=== PATIENT | female | born 1940 | race Caucasian/White ===

== ENCOUNTER 2021-11-29 11:11 | Inpatient (IN) | payer MEDICARE, OTHER ==
[~2021-11-29] VITALS: Ht 170.2 cm; Wt 71.7 kg
--- NOTE | 2021-11-29 11:11 | NUR ---
PT BIB STAFF FRM RETIREMENT FOR WEAKNESS X 1 WEEK, AND NOTICE BLOOD IN STOOL X 2 DAYS. PT IS AAOX2, NOT IN RESPIRATORY DISTRESS, HOOKED TO DYNAMOMETER MECHANIC, KEPT RESTED AND COMFORTABLE. WILL CONTINUE TO MONITOR.
[2021-11-29] MEDS ORDERED: IV NS 0.9% 500 ML BAG IV ONE (11:30)
--- NOTE | 2021-11-29 11:39 | NUR ---
MOVE SHEET SUBMITTED AND CALLED FOR MS BED.
--- NOTE | 2021-11-29 11:45 | NUR ---
IV LINE ESTABLISHED BLOOD DRAWN AND SENT TO LAB.
[2021-11-29 12:02] LABS: BASOPHILS # (AUTO) 0.1 K/uL (0.0-0.2); BASOPHILS % (AUTO) 0.9 % (0.0-2.0); EOSINOPHILS % (AUTO) 1.9 % (0.0-6.0); HEMATOCRIT 33 % (33-45); HEMOGLOBIN 10.6 g/dL (11.5-14.8); LYMPHOCYTES # (AUTO) 1.1 K/uL (0.8-4.8); MEAN CORPUSCULAR HGB CONC 33 g/dl (31.0-36.0); MEAN CORPUSCULAR VOLUME 82 fL (82-100); MONOCYTES # (AUTO) 0.6 K/uL (0.1-1.30); MONOCYTES % (AUTO) 6.8 % (2.0-12.0); NEUTROPHILS # (AUTO) 7.3 K/uL (1.8-8.9); NEUTROPHILS % (AUTO) 78.4 % (43.0-81.0); PLATELET COUNT (AUTO) 351 K/uL (150-450); RED BLOOD CELL COUNT(AUTO) 3.96 MIL/uL (4.0-5.2); WHITE BLOOD COUNT (AUTO) 9.3 K/uL (4.3-11.0)
--- NOTE | 2021-11-29 12:20 | NUR ---
PT REFUSED STRAIGHT CATH INSERTION AND STATED SHE WILL TRY TO PROVIDE URINE SPECIMEN LATER.
[2021-11-29 12:21] LABS: ALANINE AMINOTRANSFERASE 17 U/L (12-78); ALBUMIN 2.6 g/dL (3.4-5.0); ALKALINE PHOSPHATASE 78 U/L (46-116); ASPARTATE AMINOTRANSFERASE 12 U/L (15-37); BILIRUBIN,DIRECT 0.1 mg/dL (0.0-0.2); BILIRUBIN,TOTAL 0.3 mg/dL (0.2-1.0); CARBON DIOXIDE 20 mmol/L (21-32); CHLORIDE 106 mmol/L (98-107); CREATININE 3.1 mg/dL (0.6-1.3); GLUCOSE 159 mg/dL (74-106); LIPASE 105 U/L (73-393); POTASSIUM 4.4 mmol/L (3.5-5.1); SODIUM SERUM 138 mmol/L (136-145); TOTAL PROTEIN, SERUM 6.5 g/dL (6.4-8.2); UREA NITROGEN, BLOOD 54 mg/dL (7-18)
--- NOTE | 2021-11-29 13:01 | NUR ---
URINE SPECIMEN COLLECTED AND SENT TO LAB.
--- NOTE | 2021-11-29 13:03 | NUR ---
[facility] CALLED LOBSTER MAN PAGED.
[2021-11-29 14:38] LABS: BILIRUBIN,URINE NEGATIVE (NEGATIVE); LEUKOCYTE ESTERASE ,URINE NEGATIVE (NEGATIVE); NITRITE, URINE NEGATIVE (NEGATIVE); PROTEIN,URINE NEGATIVE (NEGATIVE); UGLUCOSE NEGATIVE (NEGATIVE); UROBILINOGEN,URINE 0.2 EU/dL (0.2)
[2021-11-29 14:39] LABS: COLOR,URINE STRAW (YELLOW)
--- NOTE | 2021-11-29 14:40 | NUR ---
AT BEDSIDE FOR EVAL.
[2021-11-29] MEDS ORDERED: MAG HYDROX/AL HYDROX/SIMETH 30 ML UDC PO PRN (15:00)
[2021-11-29] MEDS ORDERED: ONDANSETRON HCL/PF 4 MG/2 ML VIAL IVP PRN (15:00)
[2021-11-29] MEDS ORDERED: Z GUARD REMEDY 4 OZ OINT TP PRN (15:00)
[2021-11-29] MEDS ORDERED: MAGNESIUM HYDROXIDE 30 ML UDC PO PRN (15:00)
[2021-11-29] MEDS ORDERED: LABETALOL 20 MG/4 ML VIAL IV PRN (15:00)
[2021-11-29] MEDS ORDERED: MORPHINE SULFATE INJ 2 MG/ML DISP.SYRIN IV PRN (15:00)
[2021-11-29] MEDS: IV NS 0.9% 1,000 ML IV SCH ×2 (15:06→17:32)
--- NOTE | 2021-11-29 15:44 | NUR ---
GOT BED 328-1
[2021-11-29 16:13] LABS: BACTERIA,URINE 1+ /HPF (None Seen); RBC,URINE 0-2 /HPF (0-2); SQUAMOUS EPITHELIAL CELL,UR Few /HPF (None Seen); WBC,URINE 0-2 /HPF (0-3)
--- NOTE | 2021-11-29 16:43 | NUR ---
REPORT GIVEN TO ALEXA KATHLEEN FOR SANAZ. WITH ONGOING IV FLUID
--- NOTE | 2021-11-29 17:10 | NUR ---
Patient arrived via gurney at 17:10pm, from ER. Patient AO X 2-3, able to make needs known, can follow simple commands, no apparent distress noted, breathing even and unlabored. Admitting hospitalist made aware of the patient's arrival. Patient admitting diagnosis rectal bleed, CKD. Patient's vital signs within normal limits, no complained of facial numbness or weakness, no extremity numbness or weakness at this time. Skin intact, warm to touch, no pallor or cyanosis noted. Abdominal bowel sound present in all quadrants, no grimacing when abdomen palpated, no bleeding noted at this time. Patient oriented with use of call lights, use of bed control, use of telephone and tv control, also introduces SALES TECHNICIAN HOME THEATER and RN assigned for today, verbalized understanding and gratitude. All belongings written in the inventory list. All needs attended, kept clean and dry, call light left within reach, safety precautions in place, brakes locked, side rails up X 2, will monitor closely for any changes.
[2021-11-29 17:15] VITALS: BP 160/79
[2021-11-29 18:00] VITALS: BP 156/81
[2021-11-29] MEDS ORDERED: LABETALOL HCL IV 100MG VIAL IV PRN (18:00)
--- NOTE | 2021-11-29 18:55 | NUR ---
RN CLOSING NOTES Patient lying in bed, no SOB, respirations even and unlabored, no apparent distress noted, no dizziness, no palpitations, no chest pain, no nausea, no vomiting. All due medications given per MD order, tolerating well. Patient has an order for IV fluids (0.9NS at 75ml/hr) IV site on her left wrist, intact and IV fluids infusing well, no swelling, no redness, no c/o pain or discomfort at site. All needs attended, kept clean and dry, call light left within reach, safety precautions in place, frequent visual check rendered, brakes locked, side rails up X 2, will endorse to next shift for continuity of care.
[2021-11-29 20:00] VITALS: BP 157/81
--- NOTE | 2021-11-29 20:00 | NUR ---
MS RN OPENING NOTE PATIENT AWAKE IN BED, ALERT/ORIENTED X 2, PT ABLE TO MAKE NEEDS KNOWN. PT STABLE ON RA, NO S/S OF DISTRESS OR SOB NOTED, BREATHING EVEN AND UNLABORED. IV ACCESS ON LEFT WRIST #20G INTACT AND RUNNING NS @ 75 ML/HR. PROVIDED PATIENT WITH JUICE AND SNACK, ASSISTED PATIENT TO BATHROOM. SAFETY MEASURES IN PLACE: CALL LIGHT WITHIN REACH, SIDE RAILS UP X 3, BED LOCKED IN LOW POSITION, HOB ELEVATED, TABLE WITHIN REACH. WILL CONTINUE TO MONITOR PATIENT
[2021-11-29 20:23] LABS: HEMOGLOBIN 10.2 g/dL (11.5-14.8)
[2021-11-30] MEDS: ACETAMINOPHEN 325 MG TABLET PO PRN (06:36)
--- NOTE | 2021-11-30 06:36 | NUR ---
MS RN NOTE PATIENT REPORTING HEADACHE, TYLENOL 650 MG PO GIVEN ORDERED
--- NOTE | 2021-11-30 07:10 | NUR ---
MS RN CLOSING NOTES PATIENT AWAKE IN BED, NO SIGNIFICANT CHANGES THROUGHOUT SHIFT, PT SLEPT WELL THROUGH THE NIGHT . PT STABLE ON RA, NO S/S OF DISTRESS OR SOB NOTED, BREATHING EVEN AND UNLABORED. LEFT HAND IV RUNNING NS @ 75 ML/HR. NO BLOODY STOOL REPORTED DURING SHIFT. MEDICATIONS GIVEN ORDERED, PT NEEDS MET THROUGHOUT SHIFT. SAFETY MEASURES IN PLACE: CALL LIGHT WITHIN REACH, SIDE RAILS UP X 3, BED LOCKED IN LOW POSITION, HOB ELEVATED, TABLE WITHIN REACH, BED ALARM ON. WILL ENDORSE TO DAY SHIFT NURSE FOR CONTINUITY OF CARE
--- NOTE | 2021-11-30 07:27 | NUR ---
MS RN OPENING NOTE RECEIVED PATIENT AWAKE IN BED, ALERT/ORIENTED X 2, PT ABLE TO MAKE NEEDS KNOWN. PT STABLE ON RA, NO S/S OF DISTRESS OR SOB NOTED, BREATHING EVEN AND UNLABORED. IV ACCESS ON LEFT WRIST #20G INTACT AND RUNNING NS @ 75 ML/HR, NO S/SX OF INFILTRATION NOTED. SAFETY MEASURES IN PLACE: CALL LIGHT WITHIN REACH, SIDE RAILS UP X 3, BED LOCKED IN LOW POSITION, HOB ELEVATED, TABLE WITHIN REACH. WILL CONTINUE TO MONITOR PATIENT ACCORDINGLY.
[2021-11-30 07:46] LABS: BASOPHILS % (AUTO) 0.3 % (0.0-2.0); EOSINOPHILS % (AUTO) 3.6 % (0.0-6.0); HEMATOCRIT 31 % (33-45); HEMOGLOBIN 10.2 g/dL (11.5-14.8); LYMPHOCYTES # (AUTO) 1.6 K/uL (0.8-4.8); LYMPHOCYTES % (AUTO) 19.2 % (20.0-44.0); MEAN CORPUSCULAR HGB CONC 33 g/dl (31.0-36.0); MEAN CORPUSCULAR VOLUME 83 fL (82-100); MONOCYTES # (AUTO) 0.7 K/uL (0.1-1.30); MONOCYTES % (AUTO) 7.9 % (2.0-12.0); NEUTROPHILS # (AUTO) 5.7 K/uL (1.8-8.9); PLATELET COUNT (AUTO) 353 K/uL (150-450); RED BLOOD CELL COUNT(AUTO) 3.75 MIL/uL (4.0-5.2); WHITE BLOOD COUNT (AUTO) 8.3 K/uL (4.3-11.0)
[2021-11-30 08:00] VITALS: BP 136/67
[2021-11-30 08:10] LABS: ALANINE AMINOTRANSFERASE 17 U/L (12-78); ALBUMIN 2.3 g/dL (3.4-5.0); ALKALINE PHOSPHATASE 75 U/L (46-116); ASPARTATE AMINOTRANSFERASE 12 U/L (15-37); BILIRUBIN,TOTAL 0.3 mg/dL (0.2-1.0); CALCIUM, SERUM 9.2 mg/dL (8.5-10.1); CARBON DIOXIDE 19 mmol/L (21-32); CHLORIDE 118 mmol/L (98-107); GLUCOSE 90 mg/dL (74-106); MAGNESIUM 2.3 mg/dL (1.8-2.4); PHOSPHORUS 4.3 mg/dL (2.5-4.9); SODIUM SERUM 148 mmol/L (136-145); TOTAL PROTEIN, SERUM 5.9 g/dL (6.4-8.2); UREA NITROGEN, BLOOD 51 mg/dL (7-18)
[2021-11-30] MEDS: IV 1/2NS 1000 ML 1,000 ML IV SCH ×2 (08:50→22:08)
[2021-11-30] MEDS: PANTOPRAZOLE 40 MG VIAL IV SCH ×2 (11:36→16:16)
[2021-11-30 16:00] VITALS: BP 131/67
--- NOTE | 2021-11-30 16:42 | NUR ---
RN NOTES URINE SPECIMEN COLLECTED, LAB INFORMED SPOKE TO [place] FOR POSTDOCTORAL SCIENTIST.
--- NOTE | 2021-11-30 18:31 | NUR ---
MS RN OPENING NOTE RECEIVED PATIENT AWAKE IN BED, ALERT/ORIENTED X 2, PT ABLE TO MAKE NEEDS KNOWN. PT STABLE ON RA, NO S/S OF DISTRESS OR SOB NOTED, BREATHING EVEN AND UNLABORED. IV ACCESS ON LEFT WRIST #22G INTACT AND RUNNING 1/2 NS @ 80 ML/HR, NO S/SX OF INFILTRATION NOTED. SAFETY MEASURES IN PLACE: CALL LIGHT WITHIN REACH, SIDE RAILS UP X 3, BED LOCKED IN LOW POSITION, HOB ELEVATED, TABLE WITHIN REACH. ALL NEEDS ATTENDED AND MET. DUE MEDS GIVEN ORDERED. WILL ENDORSE TO ONCOMING SHIFT FOR SANAZ.
--- NOTE | 2021-11-30 19:34 | NUR ---
MS RN OPENING NOTE PATIENT RESTING IN BED, ALERT/ORIENTED X 2, PT ABLE TO MAKE NEEDS KNOWN. PT STABLE ON RA, NO S/S OF DISTRESS OR SOB NOTED, BREATHING EVEN AND UNLABORED. IV ACCESS ON LEFT WRIST #22G INTACT AND RUNNING 1/2NS @ 80 ML/HR. SAFETY MEASURES IN PLACE: CALL LIGHT WITHIN REACH, SIDE RAILS UP X 3, BED LOCKED IN LOW POSITION, HOB ELEVATED, TABLE WITHIN REACH, BED ALARM ON. WILL CONTINUE TO MONITOR PATIENT
[2021-11-30 20:00] VITALS: BP 141/73
[2021-11-30 20:23] LABS: BILIRUBIN,URINE NEGATIVE (NEGATIVE); COLOR,URINE YELLOW (YELLOW); LEUKOCYTE ESTERASE ,URINE NEGATIVE (NEGATIVE); NITRITE, URINE NEGATIVE (NEGATIVE); PH,URINE 6.5 (5.0-8.0); PROTEIN,URINE NEGATIVE (NEGATIVE); UGLUCOSE NEGATIVE (NEGATIVE); UROBILINOGEN,URINE 0.2 EU/dL (0.2)
[2021-11-30 22:03] LABS: CREATININE, URINE < 13.0 MG/DL (30.0-125.0); URINE SODIUM, RANDOM 40 mmol/l (40-220); URINE TOTAL PROTEIN 25.6 mg/dL (0-11.9)
--- NOTE | 2021-12-01 06:53 | NUR ---
MS RN CLOSING NOTES PATIENT AWAKE IN BED, NO SIGNIFICANT CHANGES THROUGHOUT SHIFT, PT SLEPT WELL THROUGH THE NIGHT . PT STABLE ON RA, NO S/S OF DISTRESS OR SOB NOTED, BREATHING EVEN AND UNLABORED. RIGHT HAND IV RUNNING 1/2 NS @ 80 ML/HR. NO BLOODY STOOL DURING SHIFT. MEDICATIONS GIVEN ORDERED, PT NEEDS MET THROUGHOUT SHIFT. SAFETY MEASURES IN PLACE: CALL LIGHT WITHIN REACH, SIDE RAILS UP X 3, BED LOCKED IN LOW POSITION, HOB ELEVATED, TABLE WITHIN REACH, BED ALARM ON. WILL ENDORSE TO DAY SHIFT NURSE FOR CONTINUITY OF CARE
[2021-12-01 07:10] LABS: CALCIUM, SERUM 8.5 mg/dL (8.5-10.1); CARBON DIOXIDE 22 mmol/L (21-32); CHLORIDE 116 mmol/L (98-107); GLUCOSE 89 mg/dL (74-106); MAGNESIUM 2.3 mg/dL (1.8-2.4); PHOSPHORUS 3.8 mg/dL (2.5-4.9); POTASSIUM 4.9 mmol/L (3.5-5.1); SODIUM SERUM 146 mmol/L (136-145); UREA NITROGEN, BLOOD 48 mg/dL (7-18)
[2021-12-01 07:14] LABS: BASOPHILS % (AUTO) 0.5 % (0.0-2.0); EOSINOPHILS % (AUTO) 4.3 % (0.0-6.0); HEMATOCRIT 32 % (33-45); HEMOGLOBIN 10.1 g/dL (11.5-14.8); LYMPHOCYTES # (AUTO) 1.6 K/uL (0.8-4.8); LYMPHOCYTES % (AUTO) 18.4 % (20.0-44.0); MEAN CORPUSCULAR HGB CONC 32 g/dl (31.0-36.0); MEAN CORPUSCULAR VOLUME 84 fL (82-100); MONOCYTES # (AUTO) 0.6 K/uL (0.1-1.30); NEUTROPHILS # (AUTO) 6.3 K/uL (1.8-8.9); NEUTROPHILS % (AUTO) 69.8 % (43.0-81.0); PLATELET COUNT (AUTO) 349 K/uL (150-450); RED BLOOD CELL COUNT(AUTO) 3.78 MIL/uL (4.0-5.2)
--- NOTE | 2021-12-01 07:27 | NUR ---
MS RN OPENING NOTE RECEIVED PATIENT AWAKE IN BED, ALERT/ORIENTED X 2-3, PT ABLE TO MAKE NEEDS KNOWN. PT STABLE ON RA, NO S/S OF DISTRESS OR SOB NOTED, BREATHING EVEN AND UNLABORED. IV ACCESS ON RIGHT WRIST #24G INTACT AND RUNNING 1/2 NS @ 80 ML/HR, NO S/SX OF INFILTRATION NOTED. SAFETY MEASURES IN PLACE: CALL LIGHT WITHIN REACH, SIDE RAILS UP X 3, BED LOCKED IN LOW POSITION, HOB ELEVATED, TABLE WITHIN REACH. WILL CONTINUE TO MONITOR PATIENT ACCORDINGLY.
[2021-12-01 08:00] VITALS: BP 139/82
[2021-12-01] MEDS: PANTOPRAZOLE 40 MG VIAL IV SCH ×2 (08:07→16:06)
[2021-12-01] MEDS: ACETAMINOPHEN 325 MG TABLET PO PRN (10:52)
--- NOTE | 2021-12-01 13:20 | NUR ---
RN NOTES US BLADDER ULTRASOUND DONE.
[2021-12-01 16:00] VITALS: BP 148/77
--- NOTE | 2021-12-01 18:49 | NUR ---
MS RN CLOSING NOTES PATIENT AWAKE IN BED, NO SIGNIFICANT CHANGES THROUGHOUT SHIFT, PT STABLE ON RA, NO S/S OF DISTRESS OR SOB NOTED, BREATHING EVEN AND UNLABORED. RIGHT HAND G#24 SALINE LOCKED, PATENT AND FLUSHES WELL. NO BLOODY STOOL REPORTED DURING SHIFT. MEDICATIONS GIVEN ORDERED, PT NEEDS MET THROUGHOUT SHIFT. SAFETY MEASURES IN PLACE: CALL LIGHT WITHIN REACH, SIDE RAILS UP X 3, BED LOCKED IN LOW POSITION, HOB ELEVATED, TABLE WITHIN REACH, BED ALARM ON. WILL ENDORSE TO SENIOR SOFTWARE QA ANALYST NURSE FOR CONTINUITY OF CARE
--- NOTE | 2021-12-01 19:38 | NUR ---
RN OPENING NOTES RECEIVED PT IN BED, AWAKE. AOx2-3, ABLE TO MAKE NEEDS KNOWN. ON RA AND TOLERATING WELL. NO SOB NOTED. NO S/SX OF RESPIRATORY DISTRESS NOTED. IV ACCESS IN R WRIST #24G. IV IS INTACT, PATENT , AND FLUSHING WELL. SAFETY PRECAUTIONS IN PLACE: BED IN LOWEST, LOCKED POSITION, SIDERAILS UPx2, AND BRAKES ON. TABLE AND CALL LIGHT WITHIN REACH. WILL CONTINUE TO MONITOR.
[2021-12-01 21:41] VITALS: BP 143/83
--- NOTE | 2021-12-02 06:50 | NUR ---
RN CLOSING NOTES PT IN BED, AWAKE. AOx2-3, ABLE TO MAKE NEEDS KNOWN. ON RA AND TOLERATING WELL. NO SOB NOTED. NO S/SX OF RESPIRATORY DISTRESS NOTED. IV ACCESS IN R WRIST #24G. IV IS INTACT, PATENT , AND FLUSHING WELL. ALL NEEDS MET. PT KEPT CLEAN AND DRY. ALL ORDERS CARRIED OUT. SAFETY PRECAUTIONS IN PLACE: BED IN LOWEST, LOCKED POSITION, SIDERAILS UPx2, AND BRAKES ON. TABLE AND CALL LIGHT WITHIN REACH. WILL ENDORSE TO ONCOMING SHIFT FOR SANAZ.
[2021-12-02 07:31] LABS: ALANINE AMINOTRANSFERASE 17 U/L (12-78); ALBUMIN 2.5 g/dL (3.4-5.0); ALKALINE PHOSPHATASE 78 U/L (46-116); ASPARTATE AMINOTRANSFERASE 11 U/L (15-37); BILIRUBIN,TOTAL 0.4 mg/dL (0.2-1.0); CARBON DIOXIDE 22 mmol/L (21-32); CHLORIDE 115 mmol/L (98-107); CREATININE 3.4 mg/dL (0.6-1.3); GLUCOSE 137 mg/dL (74-106); POTASSIUM 5.2 mmol/L (3.5-5.1); SODIUM SERUM 146 mmol/L (136-145); TOTAL PROTEIN, SERUM 6.4 g/dL (6.4-8.2); UREA NITROGEN, BLOOD 47 mg/dL (7-18)
--- NOTE | 2021-12-02 07:55 | NUR ---
MS/RN OPENING NOTES RECEIVED PT IN BED, AWAKE. A/Ox 2-3, ABLE TO MAKE NEEDS KNOWN. ON ROOM AIR AND TOLERATING WELL. NO SOB NOTED. NO S/SX OF RESPIRATORY DISTRESS NOTED. IV ACCESS IN R WRIST #24G. IV IS INTACT, PATENT , AND FLUSHING WELL. SAFETY PRECAUTIONS IN PLACE: BED IN LOWEST, LOCKED POSITION, SIDERAILS UPx2, AND BRAKES ON. TABLE AND CALL LIGHT WITHIN REACH. WILL CONTINUE TO MONITOR PATIENT.
[2021-12-02] MEDS: PANTOPRAZOLE 40 MG VIAL IV SCH ×2 (08:37→16:42)
[2021-12-02 08:39] VITALS: BP 162/74
--- NOTE | 2021-12-02 09:03 | NUR ---
MS/RN NOTES- LABETOLOL LABETOLOL 10MG/2ML GIVEN VIA IV PUSH DUE TO BP OF 162/74, HR 84. WILL MONITOR PATIENT.
[2021-12-02] MEDS ORDERED: PANT40TA2 PO (13:01)
[2021-12-02] MEDS ORDERED: AMLO-212 PO (13:01)
--- NOTE | 2021-12-02 19:11 | NUR ---
MS/LEARNING AND DEVELOPMENT CONSULTANT NOTES PATIENT IS ALERT AND ORIENTED X2-3, ABLE TO MAKE NEEDS KNOWN. STABLE ON ROOM AIR. PATIENT IS MEDICALLY STAVBLE AND MD ORDERED DC TO SNF. EMT CAME TO COUNCIL ON AGING DIRECTOR PATIENT. ALL BELONGINGS ACCOUNTED FOR. RN CALLED IN SNF AND WAS ABLE TO SPEAK TO A[facility]XA [facility] ADVISER AT THE SNF AND WAS ABLE TO GIVE REPORT.
== END 2021-12-02 19:30 | DRG 377 ==
LOC: ER 11:11 → TRANSITION 15:19 → MED 16:13
PROVIDERS: ADMIT Internal Medicine; ATTEND Internal Medicine
DX: K92.2 Gastrointestinal hemorrhage, unspecified (principal); N17.0 Acute kidney failure with tubular necrosis; E87.0 Hyperosmolality and hypernatremia; N18.9 Chronic kidney disease, unspecified; F03.90 Unspecified dementia, unspecified severity, without behavioral disturbance, psychotic disturbance, mood disturbance, and anxiety; R62.7 Adult failure to thrive; D64.9 Anemia, unspecified; R73.9 Hyperglycemia, unspecified; Z68.24 Body mass index [BMI] 24.0-24.9, adult; K92.1 Melena
CPT/HCPCS: 36415; 71045-TC; 76770-TC; 76856-TC; 80048-TC; 80053-TC; 80076-TC; 81001; 82570-TC; 83605-TC; 83690-TC; 83735-TC; 84100-TC; 84155-TC; 84300-TC; 85025-TC; 85027-TC; 85730-TC; 87040-TC; 87081-TC; 97116-TC; 97530-TC; C9113; C9803; G0378; J3490; J7030; J7040